=== PATIENT | female | born 1985 | race African-American/Black ===

== ENCOUNTER 2017-09-21 11:48 | Emergency (ER) | payer OTHER ==
[2017-09-21 12:13] VITALS: BP 135/85; PULSE 86; TEMP 98.5; BMI 32.8
--- NOTE | 2017-09-21 13:15 | PDOC ---
History of Present Illness - General Chief Complaint: Back Pain Stated Complaint: BACK PAIN Time Seen by Provider: 09/21/17 12:55 History Source: Patient Exam Limitations: No Limitations - History of Present Illness Initial Comments: 09/21/17 13:10 31 yr female with c/o back pain for 2 weeks left flank area no vomiting or nausea denies injury denies urine or bowel dysfunction. Pt has history of HIV, on meds. pain is worse with movement. Occurred: reports: other (2 weeks) Severity: reports: moderate Pain Location: reports: back (left flank ) Method of Injury: Yes: unknown Past History - Past Medical History Allergies/Adverse Reactions: Allergies Allergy/AdvReac Type Severity Reaction Status Date / Time No Known Allergies Allergy Verified 09/21/17 11:50 Home Medications: Ambulatory Orders Cyclobenzaprine HCl [Flexeril -] 5 mg PO TID PRN #21 tablet 09/21/17 Emtricita/Rilpivirine/Tenof Df [Complera Tablet] 1 each PO ASDIR 09/21/17 Naproxen [Naprosyn -] 500 mg PO BID PRN #14 tablet 09/21/17 Anemia: Yes Asthma: No Cancer: No Cardiac Disorders: No COPD: No DVT: No Diabetes: No HTN: No Seizures: No Thyroid Disease: No - Immunization History Immunization Up to Date: Yes - Suicide/Smoking/Psychosocial Hx Smoking History: Never smoked Have you smoked in the past 12 months: No Information on smoking cessation initiated: No Hx Alcohol Use: No Drug/Substance Use Hx: No Substance Use Type: None Hx Substance Use Treatment: No Trauma Specific PMHX - Complaint Specific PMHX Arthritis: No Back Injury: No Neck Injury: No Hx Sacro Iliac Joint Dysfunction: No Review of Systems - Review of Systems Able to Perform ROS?: Yes Is the patient limited [place] proficient: No Constitutional: No: Symptoms Reported HEENTM: No: Symptoms Reported Respiratory: No: Symptoms reported Cardiac (ROS): No: Symptoms Reported ABD/GI: No: Symptoms Reported : No: Symptoms Reported Musculoskeletal: Yes: See HPI, Back Pain Integumentary: No: Symptoms Reported Neurological: No: Symptoms reported *Physical Exam - Vital Signs Last Vital Signs Temp Pulse Resp BP Pulse Ox 98.5 F 86 15 135/85 100 09/21/17 11:50 09/21/17 11:50 09/21/17 11:50 09/21/17 11:50 09/21/17 11:50 - Physical Exam General Appearance: Yes: Nourished, Appropriately Dressed HEENT: positive: EOMI, LEI Neck: positive: Supple Respiratory/Chest: positive: Lungs Clear, Normal Breath Sounds Cardiovascular: positive: Regular Rhythm, Regular Rate Gastrointestinal/Abdominal: positive: Normal Bowel Sounds, Soft. negative: Tender Musculoskeletal: positive: Normal Inspection. negative: CVA Tenderness, CVA Tenderness (R), CVA Tenderness (L), Decreased Range of Motion, Muscle Spasm, Vertebral Tenderness Extremity: positive: Normal Capillary Refill, Normal Inspection, Normal Range of Motion Integumentary: positive: Normal Color, Dry, Warm Neurologic: positive: Fully Oriented, Alert, Normal Mood/Affect, Normal Response , Motor Strength 5/5. negative: Numbness, Sensory Deficit Medical Decision Making - Medical Decision Making 09/21/17 13:16 cc: left flank pain worse with movement, non tender to touch no rashes non radiating will check urine r/o UTI r/o toradol flexeril 09/21/17 14:59 pt states her pain has improved after toradol, pt feels better asking to go home. Pt comfortable and satisfied with the plan of care. All questions asked and answered at discharge. *DC/Admit/Observation/Transfer Diagnosis at time of Disposition: Muscle strain of chest wall Qualifiers: Encounter type: initial encounter Qualified Code(s): S29.011A - Strain of muscle and tendon of front wall of thorax, initial encounter - Discharge Dispostion Disposition: HOME Condition at time of disposition: Improved - Prescriptions Prescriptions: Cyclobenzaprine HCl [Flexeril -] 5 mg PO TID PRN #21 tablet PRN Reason: Muscle Spasms Naproxen [Naprosyn -] 500 mg PO BID PRN #14 tablet PRN Reason: Pain - Referrals Referrals: Brandan Bhagat MD [Primary Care Provider] - - Patient Instructions Additional Instructions: take naprosen as directed for pain every 12hrs take flexeril for muscle spasm as needed DO NOT DRIVE, DRINK ALCOHOL OR OPERATE MACHINERY warm compresses to area of pain as needed follow with your doctor if any worsening symptoms - Post Discharge Activity
[2017-09-21 13:33] LABS: URINE APPEARANCE SLCLOUDY; URINE BILIRUBIN NEGATIVE (NEGATIVE); URINE BLOOD NEGATIVE (NEGATIVE); URINE COLOR YELLOW; URINE GLUCOSE (UA) NEGATIVE (NEGATIVE); URINE KETONE NEGATIVE (NEGATIVE); URINE LEUK ESTERASE NEGATIVE (NEGATIVE); URINE NITRITE NEGATIVE (NEGATIVE); URINE UROBILINOGEN NEGATIVE mg/dL (0.2-1.0)
[2017-09-21 13:37] LABS: URINE PROTEIN 1+ (NEGATIVE)
[2017-09-21 13:42] LABS: URINE MUCUS MANY; URINE RBC 6 /hpf (0-3); URINE WBC <1 /hpf (3-5)
[2017-09-21] MEDS ORDERED: KETOROLAC TROMETHAMINE 60 MG/2 ML VIAL IM ONE (13:52)
[2017-09-21] MEDS ORDERED: KETOROLAC TROMETHAMINE 60 MG/2 ML VIAL ONE (13:56)
[2017-09-21 18:46] LABS: URINE LEUK ESTERASE Negative (NEGATIVE)
== END 2017-09-21 15:06 | disposition home or self-care (01) ==
LOC: JERFT 11:48
PROC: 3E0233Z Introduction of Anti-inflammatory into Muscle, Percutaneous Approach (ICD-10-PCS; principal; 2017-09-21)
DX: S29.011A Strain of muscle and tendon of front wall of thorax, initial encounter (principal); Z21 Asymptomatic human immunodeficiency virus [HIV] infection status; X58.XXXA Exposure to other specified factors, initial encounter; Y93.9 Activity, unspecified; Y92.89 Other specified places as the place of occurrence of the external cause; Y99.8 Other external cause status
CPT/HCPCS: 71101-TC; 81003; 81015; 84703; 99281-25

== ENCOUNTER 2019-09-02 12:29 | Day surgery (SDC) | payer OTHER ==
[2019-08-30 16:26] VITALS: BMI 29.0
[2019-09-02 14:28] VITALS: TEMP 99
[2019-09-02 14:49] VITALS: PULSE 66
[2019-09-02 16:41] VITALS: BP 127/88
== END 2019-09-02 16:41 | disposition home or self-care (01) ==
LOC: JASU-ENDO 12:29
PROVIDERS: ATTEND Internal Medicine Gastroenterology
PROC: 0DJD8ZZ Inspection of Lower Intestinal Tract, Via Natural or Artificial Opening Endoscopic (ICD-10-PCS; principal; 2019-09-02 13:30)
DX: K62.5 Hemorrhage of anus and rectum (principal)
CPT/HCPCS: 81025

== ENCOUNTER → 2022-08-29 | Day surgery (SDC) | payer BC, OTHER | END | disposition home or self-care (01) | LOC: JRADUS-SUR 11:47 | PROVIDERS: ATTEND Obstetrics & Gynecology | PROC: BU18YZZ Fluoroscopy of Uterus and Fallopian Tubes using Other Contrast (ICD-10-PCS; principal; 2022-08-29) | DX: N97.8 Female infertility of other origin (principal) | CPT/HCPCS: 58340; 74740-TC-FY; 76000-TC-FY; 84703 ==

== ENCOUNTER 2023-06-30 03:50 | Inpatient (IN) | payer OTHER ==
[2023-06-30] MEDS ORDERED: CITRIC ACID/SODIUM CITRATE 30 ML UNIT-DOSE CUP PO ONE (04:20)
[2023-06-30] MEDS ORDERED: ELECTROLYTE-148 SOLN 500 ML IV SCH ×2 (04:20→04:50)
[2023-06-30] MEDS ORDERED: ZIDOVUDINE IVPB ONE (05:00)
[2023-06-30] MEDS ORDERED: DEXTROSE 5% IVPB ONE (05:00)
[2023-06-30] MEDS ORDERED: WATER IVPB ONE (05:00)
[2023-06-30] MEDS ORDERED: WATER IVPB SCH (06:00)
[2023-06-30] MEDS ORDERED: ZIDOVUDINE IVPB SCH (06:00)
[2023-06-30] MEDS ORDERED: DEXTROSE 5% IVPB SCH (06:00)
[2023-06-30 06:10] VITALS: BMI 34.9
[2023-06-30] MEDS ORDERED: morphine SULFATE/PF 1 MG/2 ML (2cc Syringe - QUVA) ONE (08:09)
[2023-06-30] MEDS ORDERED: ACETAMINOPHEN 325 MG TABLET (FP) PO PRN ×2 (08:19→12:34)
[2023-06-30] MEDS ORDERED: ONDANSETRON 4 MG/2 ML VIAL IVPUSH PRN (08:19)
[2023-06-30] MEDS ORDERED: MIDAZOLAM HCL 2 MG/2 ML SINGLE DOSE VIAL ONE (09:10)
[2023-06-30] MEDS ORDERED: OXYTOCIN 10 UNITS/ML VIAL ONE ×4 (09:35)
[2023-06-30] MEDS ORDERED: ceFAZolin SODIUM 1 GM VIAL ONE ×2 (09:35)
[2023-06-30] MEDS ORDERED: OXYTOCIN 20 UNITS in 0.9% NS 20 UNIT/1,000 ML INFUS.BAG IV ONE (12:18)
[2023-06-30] MEDS: OXYTOCIN 20 UNITS in 0.9% NS 20 UNIT/1,000 ML INFUS.BAG IV SCH (12:25)
[2023-06-30] MEDS ORDERED: METHYLERGONOVINE MALEATE 0.2 MG/1 ML AMP IM PRN (12:34)
[2023-06-30] MEDS: IBUPROFEN 800 MG/8 ML IJ IVPB PRN ×2 (13:07→23:13)
[2023-06-30] MEDS: ELECTROLYTE-148 SOLN 1,000 ML IV SCH (13:15)
[2023-06-30] MEDS: FERROUS SO4 325 MG TABLET (FP) PO SCH (21:54)
[2023-06-30] MEDS: SIMETHICONE 80 MG TAB.CHEW (FP) PO PRN (23:10)
[2023-07-01] MEDS ORDERED: oxyCODONE HCL 5 MG TABLET PO PRN (00:35)
[2023-07-01] MEDS: SIMETHICONE 80 MG TAB.CHEW (FP) PO PRN ×2 (07:35→19:10)
[2023-07-01] MEDS: IBUPROFEN 600 MG TABLET (FP) PO PRN ×3 (07:35→19:10)
[2023-07-01 08:34] LABS: POTASSIUM 4.2 mmol/L (3.5-5.1)
[2023-07-01 08:38] LABS: BLOOD UREA NITROGEN 6.1 mg/dL (7-18); CALCIUM 8.3 mg/dL (8.5-10.1)
[2023-07-01 08:41] LABS: CREATININE 0.5 mg/dL (0.55-1.3)
[2023-07-01 08:43] LABS: BILIRUBIN,TOTAL 0.6 mg/dL (0.2-1); TOT PROT 5.5 g/dl (6.4-8.2)
[2023-07-01 08:44] LABS: ALBUMIN 2.2 g/dl (3.4-5.0)
[2023-07-01 08:49] LABS: BASO % 0.4 % (0-2.0); EOS % 0.6 % (0-4.5); HEMATOCRIT 31.3 % (32.4-45.2); HEMOGLOBIN 10.4 GM/dL (10.7-15.3); MCHC 33.3 g/dl (32.0-36.0); MEAN CELL VOLUME 84.1 fl (80-96); MEAN PLT VOLUME 10.4 fl (7.5-11.1); MONO % 7.2 % (3.8-10.2); NEUT % 72.8 % (42.8-82.8); PLATELET COUNT 87 10^3/uL (134-434); RBC 3.72 M/mm3 (3.60-5.2); RDW 14.9 % (11.6-15.6); WHITE BLOOD COUNT 6.4 K/mm3 (4.0-10.0)
[2023-07-01] MEDS: FERROUS SO4 325 MG TABLET (FP) PO SCH ×2 (09:30→22:12)
[2023-07-01] MEDS: PRENATAL VITAMINS W/ FOLIC ACID TABLET (FP) PO SCH (09:30)
[2023-07-01] MEDS ORDERED: EMTRICITAB/RILPIVIRI/TENOF ALA (ODEFSEY) TABLET PO SCH (10:00)
[2023-07-01] MEDS ORDERED: BISACODYL 10 MG SUPP.RECT RC PRN (12:35)
[2023-07-01] MEDS: ELECTROLYTE-148 SOLN 1,000 ML IV SCH (20:02)
[2023-07-01] MEDS: OXYTOCIN 20 UNITS in 0.9% NS 20 UNIT/1,000 ML INFUS.BAG IV SCH (20:02)
[2023-07-01] MEDS: EMTRICITAB/RILPIVIRI/TENOF ALA (ODEFSEY) TABLET PO SCH (22:07)
[2023-07-02] MEDS: SIMETHICONE 80 MG TAB.CHEW (FP) PO PRN ×4 (00:01→20:46)
[2023-07-02] MEDS: IBUPROFEN 600 MG TABLET (FP) PO PRN ×4 (00:02→20:46)
[2023-07-02] MEDS: PRENATAL VITAMINS W/ FOLIC ACID TABLET (FP) PO SCH (09:34)
[2023-07-02] MEDS: FERROUS SO4 325 MG TABLET (FP) PO SCH ×2 (09:34→21:56)
[2023-07-02] MEDS: EMTRICITAB/RILPIVIRI/TENOF ALA (ODEFSEY) TABLET PO SCH (21:56)
[2023-07-03] MEDS: IBUPROFEN 600 MG TABLET (FP) PO PRN ×2 (04:15→09:54)
[2023-07-03] MEDS: SIMETHICONE 80 MG TAB.CHEW (FP) PO PRN ×2 (04:18→09:54)
[2023-07-03 09:44] VITALS: BP 120/78; PULSE 88; RESP 17; TEMP 98.4
[2023-07-03] MEDS: PRENATAL VITAMINS W/ FOLIC ACID TABLET (FP) PO SCH (09:53)
[2023-07-03] MEDS: FERROUS SO4 325 MG TABLET (FP) PO SCH (09:53)
== END 2023-07-03 12:45 | disposition home or self-care (01) | DRG 540 ==
LOC: JLDR 03:50 → J3W 14:15
PROVIDERS: ADMIT Obstetrics & Gynecology; ATTEND Obstetrics & Gynecology
PROC: 10D00Z1 Extraction of Products of Conception, Low, Open Approach (ICD-10-PCS; principal; 2023-06-30)
DX: O34.211 Maternal care for low transverse scar from previous cesarean delivery (principal); Z3A.39 39 weeks gestation of pregnancy; Z37.0 Single live birth; Z21 Asymptomatic human immunodeficiency virus [HIV] infection status
CPT/HCPCS: 36415; 80053; 85025; 85610; 86593; 86780; 86850; 86900; 86901; 88307-TC; 93005; 93010; 94010